=== PATIENT | female | born 1965 | race Caucasian/White ===

== ENCOUNTER → 2021-03-04 | Outpatient (CLI) | payer SELFPAY ==
--- NOTE | 2021-03-04 14:09 | Diagnostic Imaging Report ---
INDICATION: Lung mass in the right middle lobe. TECHNIQUE: Serum blood glucose level at the time of injection was 109 mg/dL. The patient was administered 15.2 mCi of F-18 FDG intravenously in the left antecubital location and PET imaging was performed from the top of the skull to the mid thighs. Noncontrast CT was also performed for attenuation correction and anatomic correlation. COMPARISON: No prior imaging is available for comparison. Specifically, the abnormal outside chest CT is not available for comparison. FINDINGS: There is symmetric activity throughout the brain. The soft tissues of the neck are unremarkable. There is a hypermetabolic mass in the right middle lobe measuring 2.4 cm in transverse diameter. This demonstrates an SUV max of 13. No other pulmonary parenchymal hypermetabolic foci are seen. No mediastinal or hilar hypermetabolism is identified. Physiologic activity throughout the GI and tracts of abdomen and pelvis is noted. No suspicious hypermetabolic foci are identified in the abdomen or pelvis. IMPRESSION: Hypermetabolic mass in the right middle lobe, suspicious for primary lung neoplasm. No other suspicious hypermetabolic foci are seen. Dictated by: Dictated on workstation # [id number]
== END ==
LOC: RAD 11:15
PROVIDERS: ATTEND Nurse Practitioner Family
DX: R91.8 Other nonspecific abnormal finding of lung field (principal); R55 Syncope and collapse
CPT/HCPCS: 78815; A9552